=== PATIENT | female | born 1945 | race Caucasian/White ===

== ENCOUNTER 2020-12-01 12:05 | Outpatient (CLI) | payer MEDICARE, OTHER | END 2020-12-01 23:59 | disposition critical access hospital (66) | LOC: EMS 12:05 | DX: R06.02 Shortness of breath (principal); R42 Dizziness and giddiness; R11.0 Nausea | CPT/HCPCS: A0425; A0429 ==

== ENCOUNTER 2020-12-01 12:32 | Emergency (ER) | payer MEDICARE, OTHER ==
--- NOTE | 2020-12-01 14:06 | ED Physician Documentation ---
History of Present Illness - Stated complaint Stated Complaint: SOA - Chief complaint Chief Complaint: Resp - History obtained from History obtained from: Patient, Family - History of Present Illness Pain level max: 0 Pain level now: 0 - Additonal information Additional information: Patient is a 75-year-old female with a long history of medical issues. She has a history of congestive heart failure, hypertension, hyperlipidemia, DVT, PE and cardiac valve replacement. Also has a pacemaker. She states that that she had a telehealth visit appointment today and was concerned about bruising on the right foot. The provider that she saw was concerned about potential Covid toes and told her to come to the emergency department. The patient states she does feel lightheaded occasionally when standing up and occasionally has mild dyspnea. Uses oxygen at night, but has been on oxygen during the day before as well. Has not noticed any weight gain. No fevers. No chills. Has had her Covid vaccinations. No chest pain. No abdominal pain, nausea, vomiting. She states her recent INR check was 2.3. Does not recall any injury but does have neuropathy in her bilateral lower extremities. Review of Systems Ten Systems: 10 systems reviewed and negative Constitutional: denies: Fever, Chills Nose: denies: Rhinorrhea / runny nose, Congestion GI: denies: Vomiting, Diarrhea Skin: denies: Rash Musculoskeletal: denies: Neck pain, Back pain Neurologic: denies: Headache PD PAST MEDICAL HISTORY - Past Medical History Past Medical History: Yes Cardiovascular: Congestive heart failure, Hypertension, High cholesterol, Deep vein thrombosis, Pulmonary embolism, Valve disorder Respiratory: Shortness of breath, Sleep apnea, CPAP use, Other Neuro: Peripheral neuropathy Endocrine/Autoimmune: Type 2 diabetes GI: GERD FISH BUTCHER: None : Chronic bladder infection HEENT: Chronic vision loss, Macular degeneration Psych: None Musculoskeletal: Osteoarthritis, Scoliosis, Chronic back pain Derm: None - Past Surgical History Past Surgical History: Yes General: Cholecystectomy, Appendectomy, Bowel surgery Cardiovascular: Valve replacement, Pacemaker HEENT: Tonsil/Adenoidectomy - Present Medications Home Medications: Ambulatory Orders Medication Instructions Recorded Confirmed Atorvastatin Calcium [Lipitor] 40 mg PO DAILY 09/02/15 12/01/20 Warfarin Sodium [Coumadin] 7.5 mg PO DAILY 09/02/15 09/02/15 Warfarin [Coumadin] 5 mg PO DAILY 09/02/15 12/01/20 metFORMIN [Glucophage] 500 mg PO BID 09/02/15 12/01/20 Bumetanide [Bumex] 1 mg PO DAILY 12/01/20 12/01/20 Gabapentin Enacarbil [Horizant] 300 mg PO 12/01/20 [place]-3 Fatty Acids [Fish Oil 1,000 mg PO DAILY 12/01/20 12/01/20 Concentrate] Potassium Chloride [Klor-Con 10] 10 meq PO DAILY 12/01/20 12/01/20 Spironolactone [Aldactone] 25 mg PO DAILY 12/01/20 12/01/20 carvediloL [Coreg] 12.5 mg PO BID 12/01/20 12/01/20 lisinopriL [Zestril] 5 mg PO DAILY 12/01/20 12/01/20 - Allergies Allergies/Adverse Reactions: Allergies Allergy/AdvReac Type Severity Reaction Status Date / Time gentamicin [Gentamicin] Allergy Unknown Verified 12/01/20 12:50 latex Allergy Unknown Verified 12/01/20 12:50 Sulfa (Sulfonamide Allergy Unknown Verified 12/01/20 12:50 Antibiotics) terazosin Allergy Unknown Verified 12/01/20 12:50 tolmetin Allergy Unknown Verified 12/01/20 12:50 oxycodone AdvReac Nausea Verified 12/01/20 12:50 - Social History Does the pt smoke?: No Smoking Status: Never smoker Does the pt drink ETOH?: Yes ETOH Use: Wine Does the pt have substance abuse?: No Substance Use and Type: Meth - Immunizations Immunizations are current?: Yes PD ED PE NORMAL - Vitals Vital signs reviewed: Yes - General General: Alert and oriented X 3, No acute distress, Well developed/nourished - HEENT HEENT: PERRL, Moist mucous membranes - Neck Neck: Supple, no meningeal sign - Cardiac Cardiac: RRR, Strong equal pulses - Respiratory Respiratory: No respiratory distress, Clear bilaterally - Abdomen Abdomen: Soft, Non tender, Non distended - Derm Derm: Warm and dry - Extremities Extremities: Other (Mild swelling to the bilateral lower extremities. No calf tenderness or cord. Neurovascular intact. Does have some minimal bruising on the dorsal aspect of the toes bilaterally. 2 toes on the right, 2 toes on the left. Also has a small area of swelling to the dorsum of the right foot. No indur) - Neuro Neuro: Alert and oriented X 3 - Psych Psych: Normal mood, Normal affect Results - Vitals Vitals: Vital Signs - 24 hr 12/01/20 12/01/20 12/01/20 12:55 13:19 15:37 Temperature 36.8 C Heart Rate 90 86 73 Respiratory 18 21 19 Rate Blood Pressure 163/91 H 138/124 H 131/80 H O2 Saturation 96 94 96 12/01/20 16:22 Temperature 36.3 C L Heart Rate 78 Respiratory 16 Rate Blood Pressure 128/74 O2 Saturation 95 Oxygen O2 Source Room air Oxygen Flow Rate 2 - EKG (time done) 1520 Rate: Rate (enter#) (71) Rhythm: Paced - Labs Labs: Laboratory Tests 12/01/20 12/01/20 12/01/20 15:00 15:15 15:15 WBC 6.6 RBC 3.90 L Hgb 12.3 Hct 37.6 MCV 96.4 MCH 31.5 H MCHC 32.7 RDW 12.3 Plt Count 275 MPV 9.3 Neut # (Auto) 4.6 Lymph # (Auto) 1.3 L Frio # (Auto) 0.6 Eos # (Auto) 0.1 Baso # (Auto) 0.0 Absolute Nucleated RBC 0.00 Nucleated RBC % 0.0 PT INR Sodium 141 Potassium 4.2 Chloride 106 Carbon Dioxide 25 Anion Gap 10.0 BUN 20 Creatinine 0.9 Estimated GFR (MDRD) 61 L Glucose 125 H Calcium 9.7 Total Bilirubin 0.6 AST 27 ALT 26 Alkaline Phosphatase 62 Troponin I High Sens B-Natriuretic Peptide Total Protein 7.2 Albumin 4.4 Globulin 2.8 Albumin/Globulin Ratio 1.6 Lipase 35 Nasal Adenovirus (PCR) NOT DETECTED Nasal B. parapertussis DNA (PCR) NOT DETECTED Nasal Coronavir 229E PCR NOT DETECTED Nasal Coronavir HKU1 PCR NOT DETECTED Nasal Coronavir NL63 PCR NOT DETECTED Nasal Coronavir OC43 PCR NOT DETECTED Nasal Enterovir/Rhinovir PCR NOT DETECTED Nasal Influenza B PCR NOT DETECTED Nasal Influenza A PCR NOT DETECTED Nasal Parainfluen 1 PCR NOT DETECTED Nasal Parainfluen 2 PCR NOT DETECTED Nasal Parainfluen 3 PCR NOT DETECTED Nasal Parainfluen 4 PCR NOT DETECTED Nasal RSV (PCR) NOT DETECTED Nasal B.pertussis DNA PCR NOT DETECTED Nasal C.pneumoniae (PCR) NOT DETECTED Singh Human Metapneumo PCR NOT DETECTED Nasal M.pneumoniae (PCR) NOT DETECTED Nasal SARS-CoV-2 (PCR) NOT DETECTED 12/01/20 12/01/20 12/01/20 15:15 15:15 15:15 WBC RBC Hgb Hct MCV MCH MCHC RDW Plt Count MPV Neut # (Auto) Lymph # (Auto) Frio # (Auto) Eos # (Auto) Baso # (Auto) Absolute Nucleated RBC Nucleated RBC % PT 41.6 H INR 4.1 H Sodium Potassium Chloride Carbon Dioxide Anion Gap BUN Creatinine Estimated GFR (MDRD) Glucose Calcium Total Bilirubin AST ALT Alkaline Phosphatase Troponin I High Sens 28.5 H* B-Natriuretic Peptide 156 H Total Protein Albumin Globulin Albumin/Globulin Ratio Lipase Nasal Adenovirus (PCR) Nasal B. parapertussis DNA (PCR) Nasal Coronavir 229E PCR Nasal Coronavir HKU1 PCR Nasal Coronavir NL63 PCR Nasal Coronavir OC43 PCR Nasal Enterovir/Rhinovir PCR Nasal Influenza B PCR Nasal Influenza A PCR Nasal Parainfluen 1 PCR Nasal Parainfluen 2 PCR Nasal Parainfluen 3 PCR Nasal Parainfluen 4 PCR Nasal RSV (PCR) Nasal B.pertussis DNA PCR Nasal C.pneumoniae (PCR) Singh Human Metapneumo PCR Nasal M.pneumoniae (PCR) Nasal SARS-CoV-2 (PCR) - Rads (name of study) cxr Radiology: Final report received, EMP read contemporaneously, See rad report duplex US BLE Radiology: Final report received, EMP read contemporaneously, See rad report B foot xray Radiology: Final report received, EMP read contemporaneously, See rad report PD MEDICAL DECISION MAKING - ED course Complexity details: reviewed results, re-evaluated patient, considered differential, d/w patient ED course: 75-year-old female with bruising to the foot. She does have a supratherapeutic INR. She states that recently it was higher than this and she was told to hold her warfarin but started taking it again. Likely that the bruising is from the supratherapeutic INR. No signs of infection. No DVT. Patient is asymptomatic in the emergency department. Patient is well-appearing, nontoxic. Afebrile. Patient counseled regarding signs and symptoms for which I believe and urgent re- evaluation would be necessary. Patient with good understanding of and agreement to plan and is comfortable going home at this time This document was made in part using voice recognition software. While efforts are made to proofread this document, sound alike and grammatical errors may occur. Minimal troponin elevation, not consistent with ACS CXR Mild interstitial prominence is seen, which may be related to artifact or mild pulmonary edema. Atypical infiltrate (including COVID pneumonia) is possible, yet considered to be less likely. If there is strong clinical concern for a developing or new pulmonary process, please consider a short-term follow-up 2 view chest series, performed in deep inspiration. Foot xray IMPRESSION: There is generalized soft tissue swelling, without a jeanette, acute bony abnormality seen by plain film. No fractures or dislocations can be seen. Moderate right-sided hallux valgus deformity, with associated degenerative changes. US: No findings of deep venous thrombosis are seen. Departure - Departure Disposition: 01 Home, Self Care Clinical Impression: Supratherapeutic INR, Ecchymosis Condition: Good Instructions: International Normalized Ratio Follow-Up: your,doctor in 3 days [Other] Comments: You should hold your warfarin dose tonight. Your x-rays, ultrasound and laboratory testing did not show any acute abnormalities other than the elevated INR. Please have this rechecked in 2 to 3 days with your doctor. Return if you worsen.
--- NOTE | 2020-12-01 14:39 | XRAY Report ---
PROCEDURE: Chest 1 View X-Ray INDICATIONS: Chest Pain TECHNIQUE: One view of the chest was acquired. COMPARISON: None FINDINGS: Surgical changes and devices: A pacer device can be seen. Sternotomy changes are noted. Lungs and pleura: On the semiupright images, no large pneumothorax or large pleural effusions can be seen. No focal infiltrates are seen. Mild generalized interstitial prominence can be seen. Low lung volumes can be seen, causing a crowded appearance to the lung markings. Mediastinum: Mediastinal contours appear normal. Heart size is at the upper limits of normal for po rtable technique. Bones and chest wall: No suspicious bony lesions. Age-appropriate degenerative changes are seen. Overlying soft tissues appear unremarkable. IMPRESSION: Mild interstitial prominence is seen, which may be related to artifact or mild pulmonary edema. Atypi pavan infiltrate (including COVID pneumonia) is possible, yet considered to be less likely. If there is strong clinical concern for a developing or new pulmonary process, please consider a shor t-term follow-up 2 view chest series, performed in deep inspiration. Reviewed by: Matthew Morales MD on 12/01/2020 1:37 PM LUPILLO Approved by: Matthew Morales MD on 12/01/2020 1:37 PM LUPILLO Station ID: [id number]
--- NOTE | 2020-12-01 14:41 | XRAY Report ---
PROCEDURE: Foot 3 View BILAT INDICATIONS: B foot swelling, bruising TECHNIQUE: 3 views of each were acquired. COMPARISON: None FINDINGS: Bones: No fractures or dislocations. No suspicious bony lesions. On the right, there is moderate hallux valgus deformity, with focal degenerative change of the first metatarsophalangeal joint. Milder degenerative changes are seen elsewhere involving both feet. Parti ally bridging osteophytes can be seen involving the superior aspect of the Lisfranc joint, as seen on the lateral view. Mild plantar calcaneal spurs can be seen on both sides. Soft tissues: Mild generalized soft tissue swelling is seen. IMPRESSION: There is generalized soft tissue swelling, without a jeanette, acute bony abnormality seen by plain film . No fractures or dislocations can be seen. Moderate right-sided hallux valgus deformity, with associated degenerative changes. Reviewed by: Matthew Morales MD on 12/01/2020 1:39 PM [facility]PILLO Approved by: Matthew Morales MD on 12/01/2020 1:39 PM LUPILLO Station ID: [id number]
[2020-12-01 15:21] LABS: BASOPHILS % (AUTO) 0.3 %; EOSINOPHILS # (AUTO) 0.1 10^3/uL (0.0-0.7); EOSINOPHILS % (AUTO) 1.4 %; HCT - HEMATOCRIT 37.6 % (37.0-47.0); HGB - HEMOGLOBIN 12.3 g/dL (12.0-16.0); LYMPHOCYTES # (AUTO) 1.3 10^3/uL (1.5-3.5); MEAN CORPUSCULAR HEMOGLOBIN 31.5 pg (27.0-31.0); MEAN CORPUSCULAR HGB CONC 32.7 g/dL (32.0-36.0); MEAN CORPUSCULAR VOLUME 96.4 fL (81.0-99.0); MEAN PLATELET VOLUME 9.3 fL (7.9-10.8); MONOCYTES # (AUTO) 0.6 10^3/uL (0.0-1.0); MONOCYTES % (AUTO) 8.6 %; NEUTROPHILS # (AUTO) 4.6 10^3/uL (1.5-6.6); NEUTROPHILS % (AUTO) 69.4 %; PLT - PLATELET COUNT 275 10^3/uL (130-450); RED CELL DISTRIBUTION WIDTH 12.3 % (12.0-15.0); WHITE BLOOD COUNT 6.6 x10^3/uL (4.8-10.8)
[2020-12-01 15:27] LABS: INR 4.1 (0.8-1.2); PT - PROTHROMBIN TIME 41.6 secs (9.9-12.6)
--- NOTE | 2020-12-01 15:32 | Ultrasound Report ---
PROCEDURE: Duplex Ext Veins Bilateral INDICATIONS: Bilateral lower extremity swelling, pain TECHNIQUE: Real-time imaging, as well as color and pulse Doppler interrogation, were performed of the deep veins of both legs from the inguinal ligament to the popliteal fossa. COMPARISON: None FINDINGS: The deep veins are normally compressible, and free of intraluminal thrombus. Color and pu lse Doppler demonstrate normal phasic intravascular flow. There is normal augmentation response to d istal compression maneuver. IMPRESSION: No findings of deep venous thrombosis are seen. Note: Concordant preliminary findings given by the hvac design mechanical engineer upon the completion of the examination to Dr. Ruiz at 3:10 PM on December 01, 2020. Reviewed by: Matthew Morales MD on 12/01/2020 2:30 PM [facility]LLO Approved by: Matthew Morales MD on 12/01/2020 2:30 PM LUPILLO Station ID: [id number]
[2020-12-01 15:41] LABS: ALBUMIN 4.4 g/dL (3.2-5.5); ALBUMIN/GLOBULIN RATIO 1.6 (1.0-2.2); BILIRUBIN,TOTAL 0.6 mg/dL (0.2-1.0); CALCIUM 9.7 mg/dL (8.5-10.3); CREATININE 0.9 mg/dL (0.4-1.0); POTASSIUM 4.2 mmol/L (3.5-5.0); TOTAL PROTEIN 7.2 g/dL (6.7-8.2)
[2020-12-01 16:15] LABS: B. PARAPERTUSSIS- RESP PCR PAN NOT DETECTED; B. PERTUSSIS- RESP PCR PANEL NOT DETECTED; C. PNEUMONIAE- RESP PCR PANEL NOT DETECTED; CORONAVIRUS 229E-RESP PCR NOT DETECTED; CORONAVIRUS HKU1-RESP PCR NOT DETECTED; CORONAVIRUS NL63-RESP PCR NOT DETECTED; CORONAVIRUS OC43-RESP PCR NOT DETECTED; HUMAN METAPNEUMOVIRUS NOT DETECTED; INFLUENZA A- RESP PCR PANEL NOT DETECTED; INFLUENZA B - RESP PCR PANEL NOT DETECTED; M. PNEUMONIAE- RESP PCR PANEL NOT DETECTED; PARAINFLUENZA VIRUS 1 NOT DETECTED; PARAINFLUENZA VIRUS 2 NOT DETECTED; PARAINFLUENZA VIRUS 3 NOT DETECTED; PARAINFLUENZA VIRUS 4 NOT DETECTED; RHINOVIRUS/ENTEROVIRUS NOT DETECTED; RSV- RESP PCR PANEL NOT DETECTED; SARS-CoV-2 -RESP PCR PANEL NOT DETECTED
[2020-12-01 16:23] VITALS: BP 128/74
== END 2020-12-01 16:30 | disposition home or self-care (01) ==
LOC: EDUNIT# → ED 12:32
DX: R79.1 Abnormal coagulation profile (principal); R58 Hemorrhage, not elsewhere classified; Z20.822 Contact with and (suspected) exposure to COVID-19; I11.0 Hypertensive heart disease with heart failure; I50.9 Heart failure, unspecified; E78.5 Hyperlipidemia, unspecified; E11.9 Type 2 diabetes mellitus without complications; G47.30 Sleep apnea, unspecified; H35.30 Unspecified macular degeneration; Z86.711 Personal history of pulmonary embolism; Z86.718 Personal history of other venous thrombosis and embolism; Z95.2 Presence of prosthetic heart valve; Z95.0 Presence of cardiac pacemaker; Z79.01 Long term (current) use of anticoagulants; Z79.84 Long term (current) use of oral hypoglycemic drugs; Z79.899 Other long term (current) drug therapy
CPT/HCPCS: 0202U; 36415; 80053; 83690; 83880; 84484; 85025; 85610; 93005; 93970; 99284